=== PATIENT | male | born 1970 | race African-American/Black ===

== ENCOUNTER 2019-06-27 09:20 | Emergency (ER) | payer MEDICAID ==
[~2019-06-27] VITALS: Ht 165.1 cm; Wt 108.9 kg
[2019-06-27 09:28] VITALS: BP 137/73
== END 2019-06-27 10:13 | disposition home or self-care (01) ==
LOC: ER 09:20
DX: S96.911A Strain of unspecified muscle and tendon at ankle and foot level, right foot, initial encounter (principal); F12.90 Cannabis use, unspecified, uncomplicated; X50.1XXA Overexertion from prolonged static or awkward postures, initial encounter; Y93.01 Activity, walking, marching and hiking; Y99.8 Other external cause status; Y92.89 Other specified places as the place of occurrence of the external cause
CPT/HCPCS: 73610

== ENCOUNTER 2023-01-23 23:07 | Emergency (ER) | payer MEDICAID ==
[~2023-01-23] VITALS: Ht 165.1 cm; Wt 113.6 kg
[2023-01-24] MEDS ORDERED: IBUP800T27 PO (02:11)
[2023-01-24] MEDS ORDERED: KETOROLAC TROMETH 60MG/2ML VIAL IM ONE (02:15)
[2023-01-24 03:56] VITALS: BP 128/85
== END 2023-01-24 04:36 | disposition home or self-care (01) ==
LOC: ER 23:07
DX: S93.601A Unspecified sprain of right foot, initial encounter (principal); M20.11 Hallux valgus (acquired), right foot; F17.210 Nicotine dependence, cigarettes, uncomplicated; X50.3XXA Overexertion from repetitive movements, initial encounter; Y93.89 Activity, other specified; Y92.89 Other specified places as the place of occurrence of the external cause; Y99.8 Other external cause status
CPT/HCPCS: 73630; 96372; 99283; J1885